=== PATIENT | male | born 1975 | race African-American/Black ===

== ENCOUNTER 2022-10-11 16:28 | Emergency (ER) | payer OTHER, BC ==
[2022-10-11 17:10] VITALS: BP 122/72; PULSE 55; RESP 18; TEMP 98.1; BMI 29.0
[2022-10-11] MEDS ORDERED: ONDANSETRON 4 MG/2 ML VIAL IVPUSH ONE (17:21)
[2022-10-11] MEDS ORDERED: SODIUM CHLORIDE 0.9% 500 ML INFUS.BAG IV ONE (17:21)
[2022-10-11] MEDS ORDERED: FAMOTIDINE 20 MG/50 ML IVPB 20 MG/50 ML MG IVPB ONE ×2 (17:21→18:36)
[2022-10-11] MEDS ORDERED: MAG HYDROX/AL HYDROX/SIMETH 30 ML UNIT-DOSE CUP PO ONE (17:21)
[2022-10-11 18:24] LABS: HEMATOCRIT 46.5 % (35.4-49); HEMOGLOBIN 16.5 G/dL (11.7-16.9); MCH 30.4 pg (25.7-33.7); MCHC 35.4 g/dl (32.0-35.9); MEAN CELL VOLUME 85.9 fl (80-96); MEAN PLT VOLUME 8.9 fl (7.5-11.1); PLATELET COUNT 181.9 10^3/uL (134-434); RBC 5.41 10^6/uL (4.00-5.60); RDW 14.2 % (11.9-15.9); WHITE BLOOD COUNT 7.1 10^3/uL (4.0-10.8)
[2022-10-11] MEDS ORDERED: ONDANSETRON 4 MG/2 ML VIAL ONE (18:36)
[2022-10-11] MEDS ORDERED: MAG HYDROX/AL HYDROX/SIMETH 30 ML UNIT-DOSE CUP ONE (18:37)
[2022-10-11 18:45] LABS: ALBUMIN 4.5 g/dl (3.4-5.0); BILIRUBIN,TOTAL 0.9 mg/dl (0.2-1); CALCIUM 9.1 mg/dl (8.5-10); CREATININE 0.9 mg/dl (0.55-1.3); TOT PROT 7.6 g/dl (6.4-8.2)
[2022-10-11] MEDS ORDERED: MECLIZINE HCL 25 MG TABLET (FP) PO ONE (20:39)
[2022-10-11] MEDS ORDERED: MECLIZINE HCL 25 MG TABLET (FP) ONE (20:42)
== END 2022-10-11 21:08 | disposition home or self-care (01) ==
LOC: FER 16:28
PROC: 3E033GC Introduction of Other Therapeutic Substance into Peripheral Vein, Percutaneous Approach (ICD-10-PCS; principal; 2022-10-11)
PROC: 3E033GC Introduction of Other Therapeutic Substance into Peripheral Vein, Percutaneous Approach (ICD-10-PCS; 2022-10-11)
DX: R42 Dizziness and giddiness (principal); R10.11 Right upper quadrant pain
CPT/HCPCS: 36415; 74177-TC; 76705-TC; 80053; 83690; 85025; 99285-25; Q9967